=== PATIENT | female | born 1990 | race Two or more races ===

== ENCOUNTER 2018-02-06 10:00 | Outpatient (RCR) | payer BC | END 2018-02-13 | LOC: PT 10:00 | PROVIDERS: ATTEND Orthopaedic Surgery Sports Medicine | DX: S13.4XXA Sprain of ligaments of cervical spine, initial encounter (principal); S43.82XA Sprain of other specified parts of left shoulder girdle, initial encounter; M41.9 Scoliosis, unspecified; M62.838 Other muscle spasm; R29.3 Abnormal posture; M53.82 Other specified dorsopathies, cervical region; M62.81 Muscle weakness (generalized) ==